=== PATIENT | female | born 1955 | race Caucasian/White ===

== ENCOUNTER → 2021-03-25 | Outpatient (CLI) | payer OTHER ==
[2021-03-27 15:07] LABS: HPV 16 Negative (Negative); HPV 18 Negative (Negative); HPV OTHER HR TYPES Negative (Negative)
== END | disposition home or self-care (01) ==
LOC: LAB 19:15 → LAB SHORT 19:15
PROVIDERS: Physician Assistant
DX: Z01.419 Encounter for gynecological examination (general) (routine) without abnormal findings (principal)
CPT/HCPCS: 87624; G0123

== ENCOUNTER → 2022-04-22 | Outpatient (CLI) | payer OTHER | END | disposition home or self-care (01) | LOC: LAB SHORT 10:30 → LAB 10:30 | DX: Z51.81 Encounter for therapeutic drug level monitoring (principal); Z79.899 Other long term (current) drug therapy | CPT/HCPCS: 82306; 84443 ==

== ENCOUNTER 2022-10-08 21:55 | Inpatient (IN) | payer OTHER ==
[~2022-10-08] VITALS: Ht 162.6 cm; Wt 52.6 kg
[~2022-10-08 21:55] MED LIST: ATORVASTATIN CA20 MG PO; CREON DR 36,001 EACH PO; FLUTICASONE-SA1 EAC9; IPRAT-ALBUT 0.5-3 ML INH; LISI20 PO; METO100ER; Neurontin800 MG PO; OXAYDO5 M1 PO; OXYCODONE-ACET1 EAC2 PO; REMERON30 M9 PO; TIOT18 INH; TIZANIDINE HCL213 PO; Vitamin D2000 UNIT PO; ZOLOFT10013 PO
[2022-10-09 10:41] LABS: BASOPHILS ABSOLUTE AUTO 0.07 K/mm3 (0.00-0.23); BASOPHILS PERCENT AUTO 1 % (0-2); EOSINOPHILS ABSOLUTE AUTO 0.16 K/mm3 (0.00-0.68); EOSINOPHILS PERCENT AUTO 2 % (0-6); Hematocrit 38.7 % (33.0-51.0); IMMATURE GRAN ABSOLUTE AUTO 0.03 K/mm3 (0.00-0.10); IMMATURE GRAN PERCENT AUTO 0 % (0-1); LYMPHOCYTES ABSOLUTE AUTO 1.66 K/mm3 (0.84-5.20); LYMPHOCYTES PERCENT AUTO 16 % (21-46); MONOCYTES ABSOLUTE AUTO 0.92 K/mm3 (0.16-1.47); MONOCYTES PERCENT AUTO 9 % (4-13); Mean Corpuscular HGB 33.9 pg (26.0-34.0); Mean Corpuscular HGB Conc 33.6 g/dL (31.5-36.5); Mean Corpuscular Volume 101 fL (80-100); Mean Platelet Volume 9.8 fL (9.1-12.4); NEUTROPHILS ABSOLUTE AUTO 7.84 K/mm3 (1.96-9.15); NEUTROPHILS PERCENT AUTO 73 % (41-73); Platelet Count 240 K/mm3 (150-400); RDW Standard Deviation 48.1 fL (35.1-46.3); Red Blood Cell Count 3.84 M/mm3 (3.80-5.20); White Blood Cell Count 10.68 K/mm3 (4.00-11.30)
[2022-10-09 11:00] LABS: Albumin, Blood 3.7 g/dL (3.4-5.0); Bilirubin, Total 0.5 mg/dL (0.1-1.0); Bun/Creatinine Ratio 33.7 (12.0-20.0); Calcium, Blood 9.1 mg/dL (8.5-10.1); Creatinine, Blood 0.51 mg/dL (0.40-1.00); Globulin, Blood 3.7 g/dL (2.2-4.0); Total Protein, Blood 7.4 g/dL (6.4-8.2)
[2022-10-09 12:46] VITALS: BP 166/81
[2022-10-09 15:55] VITALS: BP 139/77
--- NOTE | 2022-10-09 17:18 | NUR ---
SHIFT SUMMARY: PT ADMITTED TO FLOOR WITH R [employer] OF R [facility]. SHE HAS SCRAPES ON HER RIGHT SIDE FROM A GROUND LEVEL FALL AND COMPLAINS OF SIGNIFICANT PAIN. PAIN MANAGED PER EMAR AND PT RESTING IN QUIET DARK ROOM PER REQUEST. SHE IS A/OX4, ON RA, AND CONT OF URINE AND BOWEL. PT USING PUREWICK TO DECREASE GETTING UP DUE TO PAIN. CALL LIGHT IN REACH AND WILL CONTINUE TO MONITOR.
[2022-10-09 19:32] VITALS: BP 157/80
[2022-10-10 04:35] LABS: Hematocrit 36.4 % (33.0-51.0); Mean Corpuscular HGB 33.3 pg (26.0-34.0); Mean Corpuscular Volume 101 fL (80-100); Mean Platelet Volume 9.8 fL (9.1-12.4); Platelet Count 203 K/mm3 (150-400); RDW Coefficient Variation 12.9 % (11.7-14.2); RDW Standard Deviation 48.4 fL (35.1-46.3); White Blood Cell Count 6.75 K/mm3 (4.00-11.30)
[2022-10-10 04:51] LABS: Bun/Creatinine Ratio 30.1 (12.0-20.0); Calcium, Blood 8.7 mg/dL (8.5-10.1); Creatinine, Blood 0.5 mg/dL (0.40-1.00); Potassium, Blood 3.8 mmol/L (3.5-5.5)
[2022-10-10 05:40] VITALS: BP 166/72
[2022-10-10 07:42] VITALS: BP 132/73
[2022-10-10 16:36] VITALS: BP 137/93
--- NOTE | 2022-10-10 18:22 | NUR ---
SHIFT SUMMARY PATIENT AOX4. PLEASANT AFFECT AND COOPERATIVE WITH CARE. PATIENT IS ABLE TO MAKE NEEDS KNOWN. SURGEON IN TO CONSULT, PATIENT TO BE NPO AT MIDNIGHT FOR PROCEDURE TOMORROW. PATIENT IS ABLE TO PIVOT ON LEFT LEG, NON-WEIGHT BEARING ON RIGHT LET, UP TO BSC. PAIN ASSESSED AND MEDICATED PER ORDERS; SEE EMAR. PTS. BED IS LOCKED AND IN THE LOWEST POSITION. CALL LIGHT IS WITHIN REACH. NO SIGNIFICANT ACUTE CHANGES.
--- NOTE | 2022-10-10 18:30 | NUR ---
PLEASE REFER TO STUDENT NOTE FOR DISCHARGE SUMMARY.
[2022-10-11] VITALS (24 sets, daily range): BP systolic 94–154; BP diastolic 46–94
--- NOTE | 2022-10-11 10:04 | NUR ---
REPORT GIVEN TO NITO LAWRENCE RN.
--- NOTE | 2022-10-11 18:08 | NUR ---
SHIFT SUMMARY TRANSFER TO UNIT FROM [facility] FLOOR POD 0 R HIP PINNING. ALERT, ORIENTED, UP 1 SBA WITH GB AND FWW. AMBULATES IN ROOM AND ESPINAL. TOLERATING REGULAR DIET AND PO LIQUIDS. VOIDING WELL. AQUACEL TO RIGHT HIP C/D/I. PAIN CONTROLLED WITH PO PAIN MEDS PER EMAR. LIDO AND NICOTINE PATCHES IN PLACE. SALINE LOCKED. PLAN TO WORK WITH PHYSICAL THERAPY TOMORROW.
[2022-10-12 00:16] VITALS: BP 109/51
[2022-10-12 04:44] VITALS: BP 147/73
--- NOTE | 2022-10-12 06:16 | NUR ---
SHIFT SUMMARY A/O X4- POD1 R HIP NAILING, PAIN MANAGED W/ PO PAIN PILLS. AMBULATING WELL W/ SBA, FWW, AND GB. VSS. NO ACUTE CHANGES THROUGHOUT SHIFT.
[2022-10-12 07:08] VITALS: BP 118/71
--- NOTE | 2022-10-12 09:33 | NUR ---
10/12/22 0933 Loly Aguirre VERIFICATIONS: EDIT CHART.
--- NOTE | 2022-10-12 11:15 | NUR ---
MORNING CARE NOTE S/P R GAMMA NAIL HIP REPAIR, POD 1. VSS. VOIDING. TOLERATING PO INTAKE, NO N/V. CHRONIC & ACUTE PAIN TOLERABLE W/ ORDERED PAIN MEDICATION. AMBULATING W/ SBA FWW & GB. PT/OT EVAL TO BE COMPLETED THIS MORNING. AQUACEL DRESSING C/D/I. VISITOR AT BEDSIDE THIS MORNING. NO NEEDS AT THIS TIME, CALL LIGHT WITHIN REACH.
[2022-10-12 14:32] VITALS: BP 112/60
--- NOTE | 2022-10-12 17:24 | NUR ---
SHIFT SUMMARY PT RECOVERYING WELL FROM R GAMMA NAIL HIP REPAIR, POD 1. VSS. PAIN TOLERABLE PER EMAR. TOLERATING PO INTAKE, NO N/V. VOIDING, BM THIS SHIFT. AQUACEL DRESSING C/D/I. AMBULATING IN & IN HALLWAY SBA FWW GB. PT/OT SESSION COMPLETED. PLAN IS TO DC HOME TOMORROW FOLLOWING DR. GORDON APPROVAL.
[2022-10-12 19:13] VITALS: BP 100/58
--- NOTE | 2022-10-13 04:43 | NUR ---
SHIFT SUMMARY A/O X4 - POD1 R HIP PINNING, AQUACEL C/D/I. PAIN MANAGED W/ PO PAIN MEDICATIONS. VSS. TOLERATING PO INTAKE. VOIDING AND PASSING FLATUS. AMBULATING WELL W/ SBA, FWW, AND GB. NO ACUTE CHANGES THROUGHOUT SHIFT.
[2022-10-13 05:10] VITALS: BP 143/71
[2022-10-13 07:21] VITALS: BP 142/67
--- NOTE | 2022-10-13 08:15 | NUR ---
INITIAL ASSESSMENT: Patient is awake sitting up in the recliner. She is alert and oriented. She reports that she has chronic pain in her back that is always rating at a 7/10, she states her hip is not in pain at all. HRR. LS Dim in the bases, Biox WNL on RA. PT is a currrent every day smoker and has COPD. BT+. PPP. Large aquacel dressing to right hip, CDI no drainiage noted. VSS. AM meds given at this time with a sip of water. Patient states she is eager to go home this morning. She states she just needs a walker before discharge. Care management contacted to assist with a walker. Patient denies other needs at this time. Call light in reach.
[2022-10-13] MEDS ORDERED: MIRALAX17 GM PO (09:55)
[2022-10-13] MEDS ORDERED: ASPI81CH PO (09:55)
--- NOTE | 2022-10-13 11:00 | NUR ---
Discharge Summary: Patient verbalized understanding of discharge instructions. Patient home with via WC.
== END 2022-10-13 11:07 | disposition home health service (06) | DRG 481 ==
LOC: ER 21:55 → MEDS 21:56 → SURS 21:56 → MEDS 10-09 12:08 → SURS 10-10 14:08 → MEDS 10-10 14:09 → SURS 10-11 12:03
PROVIDERS: Emergency Medicine; Orthopaedic Surgery; ADMIT Internal Medicine
PROC: 0QS636Z Reposition Right Upper Femur with Intramedullary Internal Fixation Device, Percutaneous Approach (ICD-10-PCS; principal; 2022-10-11 08:30)
DX: S72.111A Displaced fracture of greater trochanter of right femur, initial encounter for closed fracture (principal); K86.1 Other chronic pancreatitis; S72.144A Nondisplaced intertrochanteric fracture of right femur, initial encounter for closed fracture; I10 Essential (primary) hypertension; E78.5 Hyperlipidemia, unspecified; S80.211A Abrasion, right knee, initial encounter; S50.311A Abrasion of right elbow, initial encounter; S40.211A Abrasion of right shoulder, initial encounter; J44.9 Chronic obstructive pulmonary disease, unspecified; F32.A Depression, unspecified; G89.4 Chronic pain syndrome; G47.00 Insomnia, unspecified; F17.210 Nicotine dependence, cigarettes, uncomplicated; Z97.8 Presence of other specified devices; Z98.890 Other specified postprocedural states; Y92.89 Other specified places as the place of occurrence of the external cause; Z88.0 Allergy status to penicillin; Z88.8 Allergy status to other drugs, medicaments and biological substances; Z90.89 Acquired absence of other organs; Z98.1 Arthrodesis status; Z79.891 Long term (current) use of opiate analgesic; Z79.899 Other long term (current) drug therapy; W01.0XXA Fall on same level from slipping, tripping and stumbling without subsequent striking against object, initial encounter; Y93.K1 Activity, walking an animal
CPT/HCPCS: 36415; 72192; 80048; 80053; 85025; 85027; 94640; 94664; 94760; 96374; 97110; 97116; 97161; 97165; 97530; 99284-25; A9270; C1713; J0690; J1100; J1170; J1650; J1885; J2370; J2405; J2704; J3010

== ENCOUNTER 2022-11-17 11:06 | Day surgery (SDC) | payer OTHER ==
[~2022-11-17] VITALS: Ht 160 cm; Wt 46.9 kg
[~2022-11-17 11:06] MED LIST changes: +ASPI81CH PO; +MIRALAX17 GM PO
--- NOTE | 2022-11-17 12:13 | NUR ---
11/17/22 1213 Ariadne Beatty CHARGE NURSE TEXTED MD PADILLA THAT WE ARE AHEAD OF SCHEDULE AND WANTED TO KNOW IF HE COULD START EARLY, HAVE NOT HEARD BACK YET. PT UPDATED ON DELAY OF CASE DUE TO WAITING FOR ANESTHESIA. WARM BLANKET PLACED ON PT. CALL LIGHT IN REACH, BED IN LOW, LOCKED POSITION.
[2022-11-17 13:15] VITALS: BP 115/97
== END 2022-11-17 13:17 | disposition home or self-care (01) ==
LOC: ORSCSDS 11:06
PROVIDERS: Student in an Organized Health Care Education/Training Program
PROC: 0DB98ZX Excision of Duodenum, Via Natural or Artificial Opening Endoscopic, Diagnostic (ICD-10-PCS; principal; 2022-11-17 13:00)
PROC: 0DB58ZX Excision of Esophagus, Via Natural or Artificial Opening Endoscopic, Diagnostic (ICD-10-PCS; principal; 2022-11-17 13:00)
PROC: 0DB68ZX Excision of Stomach, Via Natural or Artificial Opening Endoscopic, Diagnostic (ICD-10-PCS; principal; 2022-11-17 13:00)
DX: R11.2 Nausea with vomiting, unspecified (principal); K21.9 Gastro-esophageal reflux disease without esophagitis; K29.80 Duodenitis without bleeding; K29.40 Chronic atrophic gastritis without bleeding; K44.9 Diaphragmatic hernia without obstruction or gangrene; J44.9 Chronic obstructive pulmonary disease, unspecified; K86.1 Other chronic pancreatitis; I10 Essential (primary) hypertension; E78.00 Pure hypercholesterolemia, unspecified; F17.210 Nicotine dependence, cigarettes, uncomplicated; Z79.899 Other long term (current) drug therapy
CPT/HCPCS: 88305; 88342; J2001; J2704; J7120

== ENCOUNTER → 2024-03-12 | Outpatient (CLI) | payer OTHER ==
[2024-03-12 18:56] LABS: BASOPHILS PERCENT AUTO 2 % (0-2); EOSINOPHILS ABSOLUTE AUTO 0.11 K/mm3 (0.00-0.68); EOSINOPHILS PERCENT AUTO 2 % (0-6); Hematocrit 39.1 % (33.0-51.0); Hemoglobin 13.2 g/dL (11.5-16.0); IMMATURE GRAN ABSOLUTE AUTO 0.01 K/mm3 (0.00-0.10); IMMATURE GRAN PERCENT AUTO 0 % (0-1); LYMPHOCYTES ABSOLUTE AUTO 1.84 K/mm3 (0.84-5.20); LYMPHOCYTES PERCENT AUTO 29 % (21-46); MONOCYTES ABSOLUTE AUTO 0.41 K/mm3 (0.16-1.47); MONOCYTES PERCENT AUTO 6 % (4-13); Mean Corpuscular HGB 34.8 pg (26.0-34.0); Mean Corpuscular HGB Conc 33.8 g/dL (31.5-36.5); Mean Corpuscular Volume 103 fL (80-100); NEUTROPHILS ABSOLUTE AUTO 3.98 K/mm3 (1.96-9.15); NEUTROPHILS PERCENT AUTO 62 % (41-73); Platelet Count 295 K/mm3 (150-400); RDW Coefficient Variation 12.3 % (11.7-14.2); RDW Standard Deviation 46.8 fL (35.1-46.3); Red Blood Cell Count 3.79 M/mm3 (3.80-5.20); White Blood Cell Count 6.45 K/mm3 (4.00-11.30)
[2024-03-12 21:07] LABS: Alanine Aminotransfer (ALT/SGP 21 U/L (12-78); Albumin, Blood 3.9 g/dL (3.4-5.0); Albumin/Globulin Ratio 1.1 (0.8-1.8); Alk Phos 78 U/L (50-136); Anion Gap 9 mmol/L (3-11); Aspartate Aminotrans (AST/SGOT 25 U/L (12-37); Bilirubin, Direct 0.1 mg/dL (0.0-0.3); Bilirubin, Indirect 0.3 mg/dL (0.1-0.7); Bilirubin, Total 0.4 mg/dL (0.1-1.0); Blood Urea Nitrogen 9 mg/dL (8-24); Bun/Creatinine Ratio 13.3 (12.0-20.0); CHOL/HDL RATIO 3.6; CO2, Blood 28 mmol/L (21-32); Calcium, Blood 8.8 mg/dL (8.5-10.1); Chloride, Blood 103 mmol/L (98-108); Cholesterol 171 mg/dL (50-200); Creatinine, Blood 0.68 mg/dL (0.40-1.00); Globulin, Blood 3.7 g/dL (2.2-4.0); Glomerular Filtration Rate 95 (60-); Glucose, Blood 91 mg/dL (70-99); HDL Cholesterol 48 mg/dL (>39); LDL/HDL RATIO 1.8; Low Density Lipoprotein Chol 88 mg/dL (0-110); Potassium, Blood 3.8 mmol/L (3.5-5.5); Sodium, Blood 136 mmol/L (136-145); Total Protein, Blood 7.6 g/dL (6.4-8.2); Triglycerides 176 mg/dL (30-160); Very Low Density Lipoprot Chol 35 mg/dL (6-32)
== END ==
LOC: LAB 17:16 → LAB SHORT 17:16
PROVIDERS: Nurse Practitioner Family
DX: I51.9 Heart disease, unspecified (principal); E78.00 Pure hypercholesterolemia, unspecified; I10 Essential (primary) hypertension
CPT/HCPCS: 80053; 80061; 82248; 83880; 85025

== ENCOUNTER → 2024-12-10 | Outpatient (CLI) | payer OTHER ==
[2024-12-10 17:05] LABS: BASOPHILS ABSOLUTE AUTO 0.08 K/mm3 (0.00-0.23); BASOPHILS PERCENT AUTO 1 % (0-2); EOSINOPHILS ABSOLUTE AUTO 0.23 K/mm3 (0.00-0.68); EOSINOPHILS PERCENT AUTO 3 % (0-6); Hematocrit 41.0 % (33.0-51.0); Hemoglobin 13.7 g/dL (11.5-16.0); IMMATURE GRAN ABSOLUTE AUTO 0.01 K/mm3 (0.00-0.10); IMMATURE GRAN PERCENT AUTO 0 % (0-1); LYMPHOCYTES ABSOLUTE AUTO 2.65 K/mm3 (0.84-5.20); LYMPHOCYTES PERCENT AUTO 35 % (21-46); MONOCYTES ABSOLUTE AUTO 0.49 K/mm3 (0.16-1.47); MONOCYTES PERCENT AUTO 7 % (4-13); Mean Corpuscular HGB Conc 33.4 g/dL (31.5-36.5); Mean Corpuscular Volume 101 fL (80-100); NEUTROPHILS ABSOLUTE AUTO 4.13 K/mm3 (1.96-9.15); NEUTROPHILS PERCENT AUTO 54 % (41-73); NRBC ABSOLUTE 0.00 K/mm3 (0.00-0.02); NRBC Auto 0.0 /100 WBC (0.0-0.2); Platelet Count 296 K/mm3 (150-400); RDW Coefficient Variation 12.4 % (11.7-14.2); RDW Standard Deviation 47.1 fL (35.1-46.3)
[2024-12-10 18:10] LABS: Alanine Aminotransfer (ALT/SGP 24 U/L (12-78); Albumin, Blood 3.9 g/dL (3.4-5.0); Albumin/Globulin Ratio 0.9 (0.8-1.8); Anion Gap 8 mmol/L (3-11); Aspartate Aminotrans (AST/SGOT 24 U/L (12-37); Bilirubin, Total 0.3 mg/dL (0.1-1.0); Blood Urea Nitrogen 11 mg/dL (8-24); CHOL/HDL RATIO 3.5; CO2, Blood 27 mmol/L (21-32); Calcium, Blood 9.4 mg/dL (8.5-10.1); Chloride, Blood 104 mmol/L (98-108); Cholesterol 156 mg/dL (50-200); Creatinine, Blood 0.74 mg/dL (0.40-1.00); Globulin, Blood 4.3 g/dL (2.2-4.0); Glucose, Blood 95 mg/dL (70-99); HDL Cholesterol 44 mg/dL (>39); LDL/HDL RATIO 1.7; Low Density Lipoprotein Chol 74 mg/dL (0-110); Potassium, Blood 3.1 mmol/L (3.5-5.5); Sodium, Blood 136 mmol/L (136-145); Total Protein, Blood 8.2 g/dL (6.4-8.2); Triglycerides 192 mg/dL (30-160); Very Low Density Lipoprot Chol 38 mg/dL (6-32)
== END ==
LOC: LAB SHORT 12:01 → LAB 12:01
PROVIDERS: Nurse Practitioner Family
DX: I10 Essential (primary) hypertension (principal); R73.9 Hyperglycemia, unspecified
CPT/HCPCS: 80053; 80061; 83036; 85025

== ENCOUNTER → 2025-03-21 | Outpatient (CLI) | payer OTHER ==
[2025-03-21 18:55] LABS: Campylobacter Sp Not Detected (NOT DETECT); E. Coli O157 Not Detected (NOT DETECT); Enteroaggregative E. coli-EAEC Not Detected (NOT DETECT); Enteropathogenic E. coli-EPEC Not Detected (NOT DETECT); Enterotoxigenic E. coli-ETEC Not Detected (NOT DETECT); Salmonella Sp Not Detected (NOT DETECT); Shiga Toxin-prod E. coli-STEC Not Detected (NOT DETECT); Shigella/Enteroin E. coli-EIEC Not Detected (NOT DETECT); Vibrio Sp Not Detected (NOT DETECT)
== END ==
LOC: LAB SHORT 15:48 → LAB 15:48
PROVIDERS: Nurse Practitioner Family
DX: K52.9 Noninfective gastroenteritis and colitis, unspecified (principal)
CPT/HCPCS: 87338; 87507